=== PATIENT | female | born 1950 | race Two or more races ===

== ENCOUNTER 2023-10-06 10:26 | Emergency (ER) | payer OTHER ==
[~2023-10-06] VITALS: Ht 154.9 cm; Wt 60.3 kg
[~2023-10-06 10:26] MED LIST: CIPRO500 MG PO; CRESTOR10 MG PO; FOSAMAX10 MG PO; MOBIC15 MG PO; SYNTHROID88 MCG PO; URIN D.S. TABLE1 TAB PO
[2023-10-06] MEDS ORDERED: ZYRTEC10 M3 PO (10:39)
[2023-10-06] MEDS ORDERED: NEURONTIN600 M1 PO (10:40)
== END 2023-10-06 12:48 | disposition home or self-care (01) ==
LOC: ER 10:26
DX: S05.12XA Contusion of eyeball and orbital tissues, left eye, initial encounter (principal); W18.39XA Other fall on same level, initial encounter; Y93.89 Activity, other specified; Y92.018 Other place in single-family (private) house as the place of occurrence of the external cause; Y99.9 Unspecified external cause status

== ENCOUNTER 2024-04-04 09:54 | Emergency (ER) | payer OTHER ==
[~2024-04-04] VITALS: Ht 162.6 cm; Wt 63.5 kg
[~2024-04-04 09:54] MED LIST changes: +NEURONTIN600 M1 PO; +ZYRTEC10 M3 PO
[2024-04-04] MEDS ORDERED: CHILDREN'S ASPI81 MG (10:11)
[2024-04-04] MEDS ORDERED: KETOROLAC TROMETHAMINE 30 MG VIAL IM STA (10:43)
[2024-04-04] MEDS ORDERED: ORPHENADRINE CITRATE 30 MG/ML AMPUL IM STA (10:44)
== END 2024-04-04 11:37 | disposition home or self-care (01) ==
LOC: ER 09:55
DX: M54.9 Dorsalgia, unspecified (principal)
CPT/HCPCS: 96372; 99282; J1885; J2360

== ENCOUNTER 2024-12-11 08:56 | Emergency (ER) | payer OTHER ==
[~2024-12-11] VITALS: Ht 154.9 cm; Wt 59.0 kg
[~2024-12-11 08:56] MED LIST changes: +CHILDREN'S ASPI81 MG
[2024-12-11] MEDS ORDERED: NORVASC2.5 M1 PO (09:17)
[2024-12-11] MEDS ORDERED: KETOROLAC TROMETHAMINE 15 MG VIAL IM STA (09:34)
[2024-12-11] MEDS ORDERED: ORPHENADRINE CITRATE 30 MG/ML AMPUL IM STA (09:34)
[2024-12-11] MEDS ORDERED: KETOROLAC TROMETHAMINE 30 MG VIAL ONE ×2 (10:09→10:10)
[2024-12-11] MEDS ORDERED: ORPHENADRINE CITRATE 30 MG/ML AMPUL ONE (10:09)
[2024-12-11] MEDS ORDERED: METAXALONE400 MG PO (12:13)
[2024-12-11] MEDS ORDERED: MEDROL4 MG PO (12:13)
[2024-12-11] MEDS ORDERED: CELEBREX200MG PO (12:13)
== END 2024-12-11 12:26 | disposition home or self-care (01) ==
LOC: ER 08:56
DX: M54.50 Low back pain, unspecified (principal)
CPT/HCPCS: 96372; 99282; J1885; J2360